=== PATIENT | female | born 1970 | race Caucasian/White ===

== ENCOUNTER → 2024-06-06 15:08 | Outpatient (REF) | payer OTHER, SELFPAY | LOC: WDC 15:08 | PROVIDERS: ATTENDING PHYSICIAN Nurse Practitioner Family | DX: Z12.31 Encounter for screening mammogram for malignant neoplasm of breast (principal) | CPT/HCPCS: 77063; 77067 ==

== ENCOUNTER 2025-05-19 06:35 | Day surgery (SDC) | payer OTHER, SELFPAY | END 2025-05-19 08:54 | disposition home or self-care (01) | LOC: GI 06:35 | PROVIDERS: ATTENDING PHYSICIAN Internal Medicine | DX: Z12.11 Encounter for screening for malignant neoplasm of colon (principal); K57.30 Diverticulosis of large intestine without perforation or abscess without bleeding; K62.1 Rectal polyp; K62.89 Other specified diseases of anus and rectum; Z83.719 Family history of colon polyps, unspecified; Z86.0100 Personal history of colon polyps, unspecified | CPT/HCPCS: 45380; 88305 ==

== ENCOUNTER → 2025-06-08 18:25 | Outpatient (REF) | payer OTHER, SELFPAY | LOC: WDC 18:25 | PROVIDERS: ATTENDING PHYSICIAN Physician Assistant Medical | DX: Z12.31 Encounter for screening mammogram for malignant neoplasm of breast (principal) | CPT/HCPCS: 77063; 77067 ==